=== PATIENT | female | born 1955 | race Caucasian/White ===

== ENCOUNTER 2019-02-13 11:28 | Day surgery (SDC) | payer OTHER ==
--- NOTE | 2019-02-13 08:07 | HP ---
DATE OF SURGERY: 02/13/2019 HISTORY OF PRESENT ILLNESS: The patient is a 63 year-old last colonoscopy evaluation no polyp. No bloody stools. No change in bowel movements. No pain. Family history sister with history of colon cancer. Father's side colon cancer. She is in need of follow up screening colonoscopy given her family history of colon cancer and history of polyps. PAST MEDICAL HISTORY: Hypertension. PAST SURGICAL HISTORY: She had colonoscopy in the past. MEDICATIONS: Lisinopril, hydralazine, gemfibrozil. ALLERGIES: NKDA. FAMILY HISTORY: Sister with history of colon cancer. Father's side colon cancer. SOCIAL HISTORY: No smoking or alcohol abuse. REVIEW OF SYSTEMS: Twelve systems reviewed. No chest pain or palpitations other systems negative or noncontributory as above and per preadmission questionnaire. She had some methicillin resistant staphylococcus aureus infection on her buttock. She had some antibiotics. She was scheduled back in December but rescheduled at this time for screening colonoscopy. PHYSICAL EXAMINATION: GENERAL: No acute distress. HEENT: Sclerae nonicteric. NECK: No JVD. CHEST: Equal excursion, nonlabored breathing. CVS: Regular rate and rhythm. ABDOMEN: Soft. No peritoneal signs. EXTREMITIES: No significant edema. NEURO: Alert, moving extremities symmetrically. No gross motor deficits noted. RECTAL: Deferred timed to endoscopy exam. IMPRESSION: Family history of colon cancer, personal history of polyps. She is in need of follow up colonoscopy. I feel she is a candidate. Risks and benefits explained in detail but not limited to bleeding or infection, risk of bowel injury or perforation possibly requiring open procedure, risk of missed or nondiagnosis or incomplete exam possibly requiring barium enema, other studies or procedures, general risk of anesthesia or sedation, risk of bowel prep, postoperative risk of nausea or vomiting but not limited to. She understands and agrees to the planned procedure and will proceed with outpatient colonoscopy under MAC anesthesia.
[2019-02-13] MEDS ORDERED: DIPRIVAN 200 MG/20 ML IV ONE (11:29)
[2019-02-13] MEDS ORDERED: Transderm Scop 1.5MG Patch TOP PRN (11:52)
[2019-02-13] MEDS ORDERED: Compazine 10 MG/2 ML IV ONE (11:53)
[2019-02-13] MEDS ORDERED: Transderm Scop 1.5MG Patch ONE (11:54)
[2019-02-13] MEDS ORDERED: Lactated Ringers 1,000 ML IV ONE (11:55)
[2019-02-13] MEDS ORDERED: Lactated Ringers 1,000 ML IV SCH (12:00)
[2019-02-13 15:26] VITALS: O2SAT 96
[2019-02-13 15:36] VITALS: BP 146/86; PULSE 68
--- NOTE | 2019-02-14 08:25 | OP ---
SURGERY DATE/TIME: 02/13/2019 1357 PREOPERATIVE DIAGNOSIS: History of polyps, family history of colon cancer need for follow up screening colonoscopy. POSTOPERATIVE DIAGNOSES: 1) Adequate prep. 2) Small polyps cecum and rectum. 3) Diverticulosis. 4) Small internal and external hemorrhoids. PROCEDURES: 1) Colonoscopy to cecum with hot snare removal of cecal polyp. 2) Hot biopsy removal small rectal polyp versus hyperplastic lesion path pending. SURGEON: Dr. Sridhar Lemons. ANESTHESIA: MAC. ESTIMATED BLOOD LOSS: Minimal. INDICATIONS: As noted above. Risks and benefits explained in detail but not limited to and consent obtained. DESCRIPTION OF PROCEDURE AND FINDINGS: The patient is taken to the operating room. MAC anesthesia introduced. After official time out and no disagreement with planned procedure, digital rectal exam did not reveal any rectal masses. Video colonoscope inserted and passed up through the slightly tortuous sigmoid, descending, transverse and ascending colon. With external pressure the scope is able to be passed around to the cecum. Appendiceal orifice and valve well visualized. The scope is slowly and carefully withdrawn. In the cecum, there was a small 3 mm polyp removed with hot snare polypectomy with brief bursts of cautery. Good hemostasis noted. Staff said they had retrieved the polyp. Scope slowly and carefully withdrawn. Prep overall was adequate. There was some semi-solid liquidy stool, few solid chunks limited the exam for very small lesions this is suction irrigated as well as possible but did slightly limit the exam. The scope is slowly and carefully withdrawn. She had some mild diverticulosis in the left colon with some small internal and external hemorrhoids. Otherwise there was another small polyp in the rectum that was removed with hot biopsy forceps and brief bursts of cautery, removed a very small early polyp versus hyperplastic lesion. Otherwise she had some internal and external hemorrhoids. There were no signs of any large polyps, masses or obstructing lesions. The patient tolerated the procedure well. There were no immediate complications. Likely given the type of polyp in the cecum and the path is benign likely benefit from follow up colonoscopy in three years.
== END 2019-02-13 14:35 | disposition home or self-care (01) ==
LOC: SDC 11:28
PROVIDERS: ATTEND Surgery
DX: Z12.11 Encounter for screening for malignant neoplasm of colon (principal); K64.4 Residual hemorrhoidal skin tags; K64.8 Other hemorrhoids; D12.3 Benign neoplasm of transverse colon; K63.5 Polyp of colon; K57.30 Diverticulosis of large intestine without perforation or abscess without bleeding; Z86.010 Personal history of colon polyps; Z80.0 Family history of malignant neoplasm of digestive organs
CPT/HCPCS: J2704; A9270-GY

== ENCOUNTER 2020-09-23 19:56 | Emergency (ER) | payer OTHER ==
[2020-09-23 20:11] VITALS: O2SAT 98
--- NOTE | 2020-09-23 20:11 | ERPHSYRPT ---
- History of Present Illness Time Seen by Provider: 09/23/20 20:20 Source: patient Exam Limitations: no limitations Physician History: Patient is a 64-year-old female presents to our ED with complaints of pain to the dorsal aspect of her left foot. Patient states she was moving a wheelbarrow loaded with wood when the wheelbarrow tipped causing her to twist her foot. Injury occurred just prior to arrival. Pain described as an ache that is worse with weightbearing. Pain improved with rest. No other injuries reported. No ankle pain knee pain or hip pain. No back pain. No blunt trauma. Patient voices no other complaints at this time. Method of Injury: unknown Occurred: just prior to arrival Quality: aching Severity of Pain-Max: moderate Severity of Pain-Current: none (Pain-free at rest. Pain left foot upon weightbearing.) Lower Extremities Pain: ankle: left Modifying Factors: Improves With: rest Associated Symptoms: unable to bear weight Allergies/Adverse Reactions: No Known Drug Allergies Allergy (Verified 02/01/19 13:29) Home Medications: Gemfibrozil 600 mg [Lopid 600 mg] 1 tab PO BID 08/11/13 [History] HydrALAzine HCL 25 MG TAB [Apresoline 25 MG TABLET] 1 tab PO BID 08/11/13 [History] Lisinopril 20 mg [Zestril 20 MG] 1 tab PO DAILY 08/11/13 [History] Hx Influenza Vaccination/Date Given: No Hx Pneumococcal Vaccination/Date Given: No - Review of Systems Constitutional: No Symptoms, No Fever, No Chills Eyes: No Symptoms Ears, Nose, & Throat: No Symptoms Respiratory: No Symptoms, No Cough, No Dyspnea Cardiac: No Symptoms, No Chest Pain, No Edema, No Syncope Abdominal/Gastrointestinal: No Symptoms, No Abdominal Pain, No Nausea, No Vomiting, No Diarrhea Genitourinary Symptoms: No Symptoms, No Dysuria Musculoskeletal: No Symptoms, No Back Pain, No Neck Pain Skin: No Symptoms, No Rash Neurological: No Symptoms, No Dizziness, No Focal Weakness, No Sensory Changes Psychological: No Symptoms Endocrine: No Symptoms Hematologic/Lymphatic: No Symptoms Immunological/Allergic: No Symptoms All Other Systems: Reviewed and Negative - Past Medical History Pertinent Past Medical History: Yes Neurological History: No Pertinent History ENT History: No Pertinent History Cardiac History: Hypertension Respiratory History: No Pertinent History Endocrine Medical History: No Pertinent History Musculoskeletal History: No Pertinent History GI Medical History: No Pertinent History History: No Pertinent History Psycho-Social History: No Pertinent History Female Reproductive Disorders: No Pertinent History Other Medical History: mrsa positive healed wounds to bottom and legs near [place] area - Past Surgical History Past Surgical History: Yes Neuro Surgical History: No Pertinent History Cardiac: No Pertinent History Respiratory: No Pertinent History Gastrointestinal: No Pertinent History Genitourinary: No Pertinent History Musculoskeletal: No Pertinent History Female Surgical History: Tubal Ligation Other Surgical History: d&c - Social History Smoking Status: Never smoker Exposure to second hand smoke: No Drug Use: none - Nursing Vital Signs Nursing Vital Signs: Initial Vital Signs Temperature 98.9 F 09/23/20 20:28 Pulse Rate 74 09/23/20 20:28 Respiratory Rate 18 09/23/20 20:28 Blood Pressure 168/103 09/23/20 20:28 O2 Sat by Pulse Oximetry 98 09/23/20 20:28 Pain Scale Pain Intensity 6 - Physical Exam General Appearance: alert Eyes, Ears, Nose, Throat Exam: moist mucous membranes Neck Exam: non-tender, supple Cardiovascular/Respiratory Exam: chest non-tender, normal breath sounds, regular rate/rhythm, no respiratory distress Gastrointestinal/Abdominal Exam: non-tender, guarding Back Exam: normal inspection, No vertebral tenderness Hips Exam: bilateral: non-tender, normal inspection, normal range of motion, no evidence of injury Legs Exam: bilateral leg: non-tender, normal inspection, normal range of motion, no evidence of injury Knees Exam: bilateral knee: non-tender, normal inspection, normal range of motion, no evidence of injury Ankle Exam: bilateral ankle: non-tender, normal inspection, normal range of motion, no evidence of injury Foot Exam: right foot: non-tender, normal inspection, normal range of motion, no evidence of injury, left foot: pain (Tenderness to palpation along the proximal third metatarsal. Overlying soft tissue intact.), swelling (Swelling to the dorsal aspect of the left foot.), bilateral foot: other (Compartments are soft. Cap refill less than 2 seconds. PT DP pulses palpable bilaterally. Foot is warm pink well perfused.) Neuro/Tendon Exam: normal sensation, normal motor functions Mental Status Exam: alert, oriented x 3, cooperative Skin Exam: normal color, warm, dry SpO2 Interpretation: normal SpO2: 98 O2 Delivery: Room Air - Course Nursing assessment & vital signs reviewed: Yes - Radiology Exams Foot X-ray Interpretation: Interpreted by me (Fracture of the left third metatarsal.) Ordered Tests: Active Orders 24 hr Category Date Time Status FOOT (MINIMUM 3 VIEWS) Stat Exams 09/23/20 20:07 Taken - Progress Progress: improved Progress Note: 09/23/20 21:09 Pain medication. And old incompletely healed spiral fracture of the distal third aspect of the third metatarsal observed. No new acute fractures. We will provide patient with a walking boot. We will refer patient to orthopedic surgery. Plan of care discussed with patient she voices no other complaints or concerns at this time. Patient agrees to follow-up with orthopedic surgery as discussed. Counseled pt/family regarding: diagnosis, rad results - Departure Departure Disposition: Home Clinical Impression: Sprain of foot, left Condition: Stable Critical Care Time: No Referrals: EVELIO FLORENCE [Primary Care Provider] - Additional Instructions: Discharge/Care Plan MUNA TESFAYE was seen on 09/23/20 in the Emergency Room. The patient was counseled regarding Diagnosis,Lab results, Imaging studies, need for follow up and when to return to the Emergency Room. Prescriptions given: Discharge Note I have spoken with the patient and/or caregivers. I have explained the patient's condition, diagnosis and treatment plan based on the information available to me at this time. I have answered the patient's and/or caregiver's questions and addressed any concerns. The patient and/or caregivers have as good understanding of the patient's diagnosis, condition and treatment plan as can be expected at this point. The vital signs have been stable. The patient's condition is stable and appropriate for discharge from the emergency department. The patient will pursue further outpatient evaluation with the primary care physician or other designated or consulting physician as outlined in the discharge instructions. The patient and/or caregivers are agreeable to this plan of care and follow-up instructions have been explained in detail. The patient and/or caregivers have received these instruction. The patient/and or caregivers are aware that any significant change in condition or worsening of symptoms should prompt an immediate return to this or the closest emergency department or call 911.
[2020-09-23 21:22] VITALS: BP 186/77
[2020-09-23 21:27] VITALS: PULSE 65
--- NOTE | 2020-09-24 08:39 | XRAY ---
Indication: Pain following crush injury. Comparison: December 06, 2018. 3 nonweightbearing views left foot demonstrates new minimally displaced distal 3rd metatarsal shaft acute fracture. Elsewhere stable mild osteopenia and tiny spurring of the calcaneus, base 5th metatarsal, and distal tibia.
== END 2020-09-23 21:31 | disposition home or self-care (01) ==
LOC: ED 19:56
DX: S93.602A Unspecified sprain of left foot, initial encounter (principal); X50.1XXA Overexertion from prolonged static or awkward postures, initial encounter; Y93.9 Activity, unspecified
CPT/HCPCS: 73630; 99283; L4386

== ENCOUNTER 2022-01-29 14:14 | Emergency (ER) | payer OTHER ==
--- NOTE | 2022-01-29 16:27 | XRAY ---
Indication: Pain and bruising following fall 1 week ago. Comparison: None 2 view left lower leg demonstrates osteopenia, moderate medial knee joint space narrowing/spurring, and small tibial tuberosity spurring. No other bony, articular, or soft tissue abnormalities.
--- NOTE | 2022-01-29 16:27 | XRAY ---
Indication: Pain and bruising following fall 1 week ago. Comparison: None 2 view left femur demonstrates osteopenia and moderate medial knee joint space narrowing/spurring. No other bony, articular, or soft tissue abnormalities.
[2022-01-29 17:17] VITALS: BP 164/94; PULSE 65; O2SAT 97
--- NOTE | 2022-01-29 17:26 | ERPHSYRPT ---
- History of Present Illness Time Seen by Provider: 01/29/22 15:00 Source: patient Exam Limitations: no limitations Patient Subjective Stated Complaint: Pt fell a week ago and she landed on her right knee but then her left leg went straight out and caused bruising on her u pper and lower medial/posterior/and lateral side of left leg Triage Nursing Assessment: Pt brought to the ER by a friend, hypertensive, denies pain while sitting at this time but does have pain at other times, denies hitting head or LOC, pulses normal, here to make sure that she didn't break a bone, doesn't appear to be in any distress Physician History: Patient is a 66-year-old female presents to emergency department for evaluation of bruising to her left leg. Patient fell a week ago. Patient's left leg went out in front of her in an extended fashion. Patient pulled her hamstring. Over the course of a week patient developed bruising of her left leg. Patient ambulatory. Patient has minimal discomfort at this time. Patient declined pain medication. Patient simply wants to know why she is breathing so much. No lower extremity numbness tingling or weakness. No other trauma or or injuries reported. No back pain. No BHT or LOC. No neck pain. Cervical spine cleared clinically. The fall was mechanical. No associated chest pain. No nausea vomiting or diaphoresis. No numbness tingling or weakness. Patient voices no other complaints or concerns at this time. Method of Injury: fell Occurred: last week Quality: constant Severity of Pain-Max: mild Severity of Pain-Current: none Lower Extremities Pain: thigh: left Modifying Factors: Improves With: other (Palpation to the left proximal hamstring) Associated Symptoms: none Allergies/Adverse Reactions: No Known Drug Allergies Allergy (Verified 01/29/22 15:05) Home Medications: Gemfibrozil 600 mg [Lopid 600 mg] 1 tab PO BID 08/11/13 [History] HydrALAzine HCL 25 MG TAB [Apresoline 25 MG TABLET] 1 tab PO BID 08/11/13 [History] Lisinopril 20 mg [Zestril 20 MG] 1 tab PO DAILY 08/11/13 [History] Hx Tetanus, Diphtheria Vaccination/Date Given: Yes Hx Influenza Vaccination/Date Given: No Hx Pneumococcal Vaccination/Date Given: No Travel Risk - International Travel Have you traveled outside of the country in past 3 weeks: No - Coronavirus Screening Are you exhibiting any of the following symptoms?: No Close contact with a COVID-19 positive Pt in past 14-21 Days: No - Vaccine Status Have you recieved a Covid-19 vaccination: No - Review of Systems Constitutional: No Symptoms, No Fever, No Chills Eyes: No Symptoms Ears, Nose, & Throat: No Symptoms Respiratory: No Symptoms, No Cough, No Dyspnea Cardiac: No Symptoms, No Chest Pain, No Edema, No Syncope Abdominal/Gastrointestinal: No Symptoms, No Abdominal Pain, No Nausea, No Vomiting, No Diarrhea Genitourinary Symptoms: No Symptoms, No Dysuria Musculoskeletal: No Symptoms, No Back Pain, No Neck Pain Skin: No Symptoms, No Rash Neurological: No Symptoms, No Dizziness, No Focal Weakness, No Sensory Changes Psychological: No Symptoms Endocrine: No Symptoms Hematologic/Lymphatic: No Symptoms Immunological/Allergic: No Symptoms All Other Systems: Reviewed and Negative - Past Medical History Pertinent Past Medical History: Yes Neurological History: No Pertinent History ENT History: No Pertinent History Cardiac History: Hypertension Respiratory History: No Pertinent History Endocrine Medical History: No Pertinent History Musculoskeletal History: No Pertinent History GI Medical History: No Pertinent History History: No Pertinent History Psycho-Social History: No Pertinent History Female Reproductive Disorders: No Pertinent History Other Medical History: mrsa positive healed wounds to bottom and legs near [place] area - Past Surgical History Past Surgical History: Yes Neuro Surgical History: No Pertinent History Cardiac: No Pertinent History Respiratory: No Pertinent History Gastrointestinal: No Pertinent History Genitourinary: No Pertinent History Musculoskeletal: No Pertinent History Female Surgical History: Tubal Ligation Other Surgical History: d&c - Social History Smoking Status: Never smoker Exposure to second hand smoke: No Drug Use: none Patient Lives Alone: No - Nursing Vital Signs Nursing Vital Signs: Initial Vital Signs Temperature 97.9 F 01/29/22 14:57 Pulse Rate 71 01/29/22 14:57 Blood Pressure 144/84 01/29/22 14:57 O2 Sat by Pulse Oximetry 94 L 01/29/22 14:57 Pain Scale Pain Intensity 0 - Physical Exam General Appearance: no apparent distress, alert Eyes, Ears, Nose, Throat Exam: moist mucous membranes Neck Exam: non-tender, supple Cardiovascular/Respiratory Exam: chest non-tender, normal breath sounds, regular rate/rhythm, no respiratory distress Gastrointestinal/Abdominal Exam: non-tender, guarding Back Exam: normal inspection, No vertebral tenderness Hips Exam: left: other (Some tenderness to palpation posterior hamstring proximally which appears to be the site of muscle injury. Extremity neurovascular intact distally. Compartments are soft. Cap refill less than 2 seconds.), bilateral: non-tender, normal inspection, normal range of motion Knees Exam: bilateral knee: non-tender, normal inspection, normal range of motion, no evidence of injury Ankle Exam: bilateral ankle: non-tender, normal inspection, normal range of motion, no evidence of injury Foot Exam: bilateral foot: non-tender, normal inspection, normal range of motion, no evidence of injury Neuro/Tendon Exam: normal sensation, normal motor functions Mental Status Exam: alert, oriented x 3, cooperative Skin Exam: normal color, warm, dry SpO2 Interpretation: normal SpO2: 97 O2 Delivery: Room Air - Course Nursing assessment & vital signs reviewed: Yes - Radiology Exams Femur X-ray Interpretation: Teleradiologist Report (No fracture or dislocation. Osteopenia. Knee arthritis.) Lower Leg X-ray Interpretation: Teleradiologist Report (No fracture dislocations. No soft tissue abnormalities. Osteopenia. Knee arthritis.) Ordered Tests: Active Orders 24 hr Category Date Time Status FEMUR Stat Exams 01/29/22 15:38 Completed LOWER LEG Stat Exams 01/29/22 15:38 Completed - Progress Progress: improved Progress Note: Tenderness palpation left proximal hamstring. It appears that patient experienced a mild hamstring during tear. Patient ambulatory and functional. Patient does have some residual bruising. [place] appears to have pulled the bruising down to her lower leg. X-rays are negative for fracture dislocations. There is some osteopenia and some knee arthritis observed. Patient otherwise feels well. Patient inclined pain medication. Patient is ready for discharge. Patient has a friend at bedside who will drive her home. Patient voices no other complaints or concerns at this time. Patient agrees to follow-up with primary care doctor within 48 hours for reevaluation. Portions of this note were created with voice recognition technology. There may be grammatical, spelling, punctuation or sound alike errors 01/29/22 17:25 Counseled pt/family regarding: diagnosis, need for follow-up, rad results - Departure Departure Disposition: Home Clinical Impression: Hamstring tear, Osteopenia, Arthritis of knee Condition: Stable Critical Care Time: No Referrals: EVELIO FLORENCE [Primary Care Provider] - Follow up/PCP as directed Additional Instructions: Discharge/Care Plan MUNA TESFAYE was seen on 01/29/22 in the Emergency Room. The patient was counseled regarding Diagnosis,Lab results, Imaging studies, need for follow up and when to return to the Emergency Room. Prescriptions given: Discharge Note I have spoken with the patient and/or caregivers. I have explained the patient's condition, diagnosis and treatment plan based on the information available to me at this time. I have answered the patient's and/or caregiver's questions and addressed any concerns. The patient and/or caregivers have as good understanding of the patient's diagnosis, condition and treatment plan as can be expected at this point. The vital signs have been stable. The patient's condition is stable and appropriate for discharge from the emergency department. The patient will pursue further outpatient evaluation with the primary care physician or other designated or consulting physician as outlined in the discharge instructions. The patient and/or caregivers are agreeable to this plan of care and follow-up instructions have been explained in detail. The patient and/or caregivers have received these instruction. The patient/and or caregivers are aware that any significant change in condition or worsening of symptoms should prompt an immediate return to this or the closest emergency department or call 911.
== END 2022-01-29 17:27 | disposition home or self-care (01) ==
LOC: ED 14:14
DX: S76.312A Strain of muscle, fascia and tendon of the posterior muscle group at thigh level, left thigh, initial encounter (principal); W19.XXXA Unspecified fall, initial encounter; M17.12 Unilateral primary osteoarthritis, left knee; M85.862 Other specified disorders of bone density and structure, left lower leg; M85.852 Other specified disorders of bone density and structure, left thigh; I10 Essential (primary) hypertension; Z79.899 Other long term (current) drug therapy
CPT/HCPCS: 73552; 73590; 99283

== ENCOUNTER 2023-04-26 09:48 | Day surgery (SDC) | payer OTHER ==
--- NOTE | 2023-04-26 09:03 | HP ---
DATE OF SURGERY: 04/26/2023 HISTORY OF PRESENT ILLNESS: The patient is a 67-year-old with history of polyps, last colonoscopy 2019. No bloody stools. No pain. No change in bowel movements. Family history of father with colon cancer, uncle and sister may have had colon cancer. The patient is in need of follow up screening colonoscopy. PAST MEDICAL HISTORY: Hypertension. History of polyps. PAST SURGICAL HISTORY: Colonoscopy in the past. No prior major abdominal surgery. MEDICATIONS: Zestril, Apresoline, Lopid, Viactiv, apple cider vinegar plus. Beet root gummy. ALLERGIES: NKDA. FAMILY HISTORY: Negative in regards to this problem. SOCIAL HISTORY: No smoking or alcohol abuse. REVIEW OF SYSTEMS: Fourteen systems reviewed. No chest pain or palpitations. Other systems negative or noncontributory as above and per preadmission questionnaire. PHYSICAL EXAMINATION: GENERAL: No acute distress. HEENT: Sclerae nonicteric. EOMI. Oral mucous membranes moist. NECK: No JVD. CHEST: Equal excursion, nonlabored breathing. CVS: Regular rate and rhythm. ABDOMEN: Soft. No peritoneal signs. EXTREMITIES: No significant edema. NEURO: Alert, oriented, moving extremities symmetrically. RECTAL: Deferred timed to endoscopy exam. PSYCH: Appropriate mood and affect. SKIN: Dry. IMPRESSION: History of polyps, family history of colon cancer. She is in need of follow up screening colonoscopy. I feel she is a candidate. Risks and benefits explained in detail including but not limited to bleeding or infection, risk of bowel injury or perforation possibly requiring further procedure, risk of missed or nondiagnosis or incomplete exam, possibly requiring barium enema, other studies or procedures, general risk of anesthesia or sedation, risk of bowel prep but not limited to, consent obtained. Will proceed with outpatient screening colonoscopy under MAC anesthesia.
[2023-04-26] MEDS ORDERED: Transderm Scop 1.5MG Patch TOP PRN (10:07)
[2023-04-26 10:24] VITALS: RESP 18
[2023-04-26] MEDS ORDERED: Lactated Ringers 1,000 ML IV SCH (10:30)
[2023-04-26] MEDS ORDERED: Xylocaine-Mpf 2% 5 Ml Vial ONE (11:09)
[2023-04-26] MEDS ORDERED: DIPRIVAN 200 MG/20 ML IV ONE ×2 (11:09→11:29)
[2023-04-26] MEDS ORDERED: Versed 2 MG/2 ML Injection ONE (11:10)
[2023-04-26 12:25] VITALS: BP 126/63; PULSE 53; TEMP 97.3; O2SAT 96
--- NOTE | 2023-04-26 13:36 | OP ---
SURGERY DATE/TIME: 04/26/2023 1110 PREOPERATIVE DIAGNOSES: 1) Need for screening colonoscopy. 2) History of polyps. 3) Family history of colon cancer. POSTOPERATIVE DIAGNOSES: 1) Polyps ascending colon and transverse colon. 2) Pancolonic diverticulosis. 3) ASA Class II. 4) Withdrawal time 9 minutes and 30 seconds. 5) Fair bowel prep. 6) Tortuous colon. PROCEDURES: 1) Colonoscopy to cecum. 2) Hot snare piecemeal polypectomy ascending colon polyp. 3) Hot biopsy piecemeal polypectomy transverse colon polyps x2. SURGEON: Dr. Sridhar Lemons. ANESTHESIA: MAC. ESTIMATED BLOOD LOSS: Minimal. INDICATIONS: As noted above. Risks and benefits explained in detail but not limited to and consent obtained. DESCRIPTION OF PROCEDURE AND FINDINGS: The patient is taken to the endoscopy room. MAC anesthesia induced. After official time out and no disagreement with planned procedure, digital rectal exam did not reveal any rectal masses. Video colonoscope inserted and passed up through the tortuous sigmoid, descending, transverse and ascending colon. The last 2 to 3 cm required positioning on her back and two different staff members pushing on the abdomen. Finally was able to visualize the appendiceal orifice. Prep overall was fair. A little bit of liquidy and a little bit of semi-solid stool throughout the colon slightly limited the exam for very small lesions. The scope is carefully withdrawn over the next 9 minutes and 30 seconds taking time to remove in piecemeal fashion using both hot biopsy forceps and hot snare polypectomy in a piecemeal fashion and 5 to 6 mm proximal ascending colon polyp. It did appear to be moved in toto, appeared to have a viable base. The scope pulled back to transverse colon. She did have pancolonic diverticulosis moderately severe over on the left colon. In the transverse colon there are a couple different polyps removed with hot biopsy polypectomy appeared to be removed completely and retrieved. No signs of any other large polyps, masses or obstructing lesion. She did have a tortuous colon as mentioned above. The patient tolerated the procedure well. There was no family to discuss the findings with at this time.
== END 2023-04-26 12:35 | disposition home or self-care (01) ==
LOC: SDC 09:48
PROVIDERS: ATTEND Surgery
DX: Z12.11 Encounter for screening for malignant neoplasm of colon (principal); Z09 Encounter for follow-up examination after completed treatment for conditions other than malignant neoplasm; Z86.010 Personal history of colon polyps; Z80.0 Family history of malignant neoplasm of digestive organs; K57.30 Diverticulosis of large intestine without perforation or abscess without bleeding; D12.2 Benign neoplasm of ascending colon; D12.3 Benign neoplasm of transverse colon
CPT/HCPCS: J2250; J2704; A9270-GY